=== PATIENT | male | born 1960 | race Caucasian/White ===

== ENCOUNTER 2018-07-20 09:07 | Observation (INO) ==
[2018-07-10 14:29] LABS: Hematocrit (blood only) 42.1 % (42-52); Hemoglobin 14.5 g/dL (14.0-18.0); Mean Corpuscular Hgb Conc 34.4 g/dL (32-36); Mean Corpuscular Volume 93.8 fL (80-100); Mean Platelet Volume 9.6 fL (7.4-10.4); Platelet Count 286 K/uL (130-400); RDW Coefficient of Variation 13.6 % (11.5-14.5); RDW Standard Deviation 46.5 fL (36.4-46.3); Red Blood Count 4.49 M/uL (4.7-6.1); White Blood Count 9.64 K/uL (4.8-10.8)
[2018-07-10 14:57] LABS: Calcium 9.3 mg/dl (8.5-10.1); Creatinine Clr Calc Pharmacy 106.3 ml/min; Potassium 3.6 mmol/L (3.5-5.1)
--- NOTE | 2018-07-15 07:06 | Anesthesiology Consultation ---
Date of Service July 15, 2018 Assessment & Plan (1) Encounter for pre-operative examination: Chart Review Chart Review: Acceptable Risk for Surgery and Patient NOT seen in Pre Admission Testing Consults Requested none History Surgery Operation Date: 07/20/18 07:00 Proposed Procedures p Laparoscopic Cholecystectomy - Gage Ruiz MD Height/Weight Height: 5 ft 8 in Weight: 105.233 kg Allergies Allergy/AdvReac Type Severity Reaction Status Date / Time ACROMYCIN Allergy Mild Rash Uncoded 07/09/18 09:24 Medications Home Medications Medication Instructions Recorded Confirmed Last Taken atorvastatin 20 mg PO HS 07/09/18 07/09/18 Unknown cholecalciferol (vitamin D3) 2,000 unit PO HS 07/09/18 07/09/18 Unknown [Vitamin D3] omeprazole 20 mg PO BID 07/09/18 07/09/18 Unknown penicillin V potassium 500 mg PO Q6H 07/09/18 07/09/18 Unknown ranitidine HCl [Zantac] 150 mg PO HS 07/09/18 07/09/18 Unknown venlafaxine [Effexor XR] 150 mg PO HS 07/09/18 07/09/18 Unknown Past Medical History Medical History Anxiety Barretts esophagus Cardiac murmur ONLY AN Degenerative disc disease Depression GERD (gastroesophageal reflux disease) Hepatitis C Hyperlipidemia Sleep apnea CPAP Past Family History Family History Mother Family hx of colon cancer Past Surgical History Surgical History History of adenoidectomy History of anesthesia reaction PROPROFOL WITH DENTAL PROCEDURE-LIGHTHEADED AND DIZZINESS 24 HOURS AFTER PROCEDURE. History of colonoscopy History of esophagogastroduodenoscopy (EGD) History of laminectomy LUMBAR X 3 History of tonsillectomy History of tooth extraction Hx of hand surgery RT HAND 5TH FINGER FX REPAIR Social History Smoking Status: Never smoker tobacco type: smokeless tobacco Do You Dip or Chew Tobacco: Yes Hx Alcohol Use: No Hx Substance Use: No substance use type: does not use Exercise / Class Metabolic Activity II 4-5 Yardwork/Stairs/Walk up hill Testing Electrocardiogram Date: 07/10/18 Findings: + NSR @ (77 bpm) and + NSST changes low voltage QRS Laboratory Results 07/10/18 13:32 07/10/18 13:32
[~2018-07-20 09:07] MED LIST: ACETAMINOPHEN 1000 MG/100 ML IV IV ONE; CEFAZOLIN 2000MG 2,000 MG/15 ML SYR IV SCH; LR 15ML/HR IV SCH
[2018-07-20] MEDS ORDERED: fentaNYL citrate 100 MCG/2 ML VIAL ONE (10:06)
[2018-07-20] MEDS ORDERED: MIDAZOLAM HCL 1 MG/ML 2ML VIAL ONE (10:06)
--- NOTE | 2018-07-20 10:45 | History & Physical Bridge Note ---
Date of Service July 20, 2018 History & Physical Bridge Note I have examined the patient, reviewed the History & Physical and in the interval since the performance of the History & Physical I have noted the following changes of clinical significance: no changes noted
[2018-07-20] MEDS ORDERED: CONRAY 60% 50 ML VIAL ONE (11:08)
[2018-07-20] MEDS ORDERED: CEFAZOLIN 250 MG/ML 1 GM VIAL ONE (11:08)
[2018-07-20] MEDS ORDERED: HEPARIN (PORCINE) 1000 UNIT/ML 10 ML (CATH LAB USE ONLY) ONE (11:08)
[2018-07-20] MEDS ORDERED: BUPIVACAINE 0.5 % 5 MG/1 ML MPF 30ML VIAL ONE (11:08)
[2018-07-20] MEDS ORDERED: PROPOFOL IV EMULSION 10 MG/ML 20 ML VIAL IV ONE ×2 (13:19→14:35)
[2018-07-20] MEDS ORDERED: ROCURONIUM BROMIDE 10 MG/ML 5 ML VIAL ONE ×2 (13:20→14:35)
[2018-07-20] MEDS ORDERED: ONDANSETRON INJ 2 MG/ML 2 ML VIAL ONE (13:20)
[2018-07-20] MEDS ORDERED: METOCLOPRAMIDE HCL INJ 5 MG/ML 2 ML VIAL ONE (13:20)
[2018-07-20] MEDS ORDERED: raNITIdine HCl 25 MG/ML VIAL ONE (13:20)
[2018-07-20] MEDS ORDERED: LIDOCAINE HCL 2% 2 ML VIAL/AMP(20MG/ML) INFIL ONE (13:23)
[2018-07-20] MEDS ORDERED: GLYCOPYRROLATE 0.2 MG/ML VIAL ONE (13:36)
[2018-07-20] MEDS ORDERED: NEOSTIGMINE METHYLSULFATE 5 MG/5 ML SYR ONE (13:36)
[2018-07-20] MEDS ORDERED: ACETAMINOPHEN 1000 MG/100 ML IV IV ONE (13:41)
[2018-07-20] MEDS ORDERED: MoRPHine SULFATE 2 MG/ML CARP ONE ×2 (13:54→14:31)
[2018-07-20] MEDS ORDERED: ONDANSETRON INJ 2 MG/ML 2 ML VIAL IV PRN ×2 (15:09→17:12)
[2018-07-20] MEDS ORDERED: ATROPINE SULFATE 0.1 MG/ML 10ML SYR IV PRN (15:09)
[2018-07-20] MEDS ORDERED: fentaNYL citrate 100 MCG/2 ML VIAL IV PRN (15:09)
[2018-07-20] MEDS ORDERED: DEXAMETHASONE SOD INJ 4 MG/ML VIAL IV PRN (15:09)
[2018-07-20] MEDS ORDERED: ePHEDrine sulfate 50 MG/ML AMP IV PRN (15:09)
[2018-07-20] MEDS ORDERED: HYDROmorphone INJ 2 MG/ML SYR/VIAL IV PRN (15:09)
--- NOTE | 2018-07-20 15:09 | Fluoroscopy Report ---
[place] cholangiogram OR CLINICAL HISTORY: Cholecystectomy COMPARISON STUDY: None FLUOROSCOPY TIME: 43 seconds. NUMBER OF FLUOROSCOPIC IMAGES: 3 FINDINGS: The cystic duct was cannulated and contrast was instilled into the common bile duct. There is no ductal dilatation. There was free flow into the duodenum. There is a nonspecific linear defect within the medial wall of the distal common bile duct, just proximal to the ampulla. IMPRESSION: 1. Subtle nonspecific linear defect within the medial wall the distal common bile duct just proximal to the ampulla. This is of uncertain etiology 2. No evidence of ductal dilatation. Free flow into the duodenum. Electronically signed by: Alberto Cannon M.D. 07/20/2018 3:07 PM
--- NOTE | 2018-07-20 15:33 | Post Operative Brief Note ---
Immediate Post Op Note v1 Date of Surgery July 20, 2018 Pre & Post Diagnosis Operation Date: 07/20/18 11:10 Pre-Op Diagnosis: Gallstones Post-Op Diagnosis: Gallstones Procedure Operation Date: 07/20/18 11:10 Actual Procedures p Laparoscopic Cholecystectomy(Not Applicable) - Gage Ruiz MD Surgeon Gage Ruiz MD [place] [facility] Sofia Griggs PA-C Estimated Blood Loss 25 Findings Consistent with Post-Op Diagnosis Specimens Gallbladder and contents Drains Davey-Mayes Drain Complications none
[2018-07-20] MEDS ORDERED: PROMETHAZINE HCL 6.25 MG in SODIUM CHLORIDE 0.9% 50 ML IV STA (16:20)
--- NOTE | 2018-07-20 17:05 | Anesthesiology Progress Note ---
Date of Service July 20, 2018 Anesthesia Post Procedure Vital Signs Vital Signs: Temp Pulse Pulse Resp BP Pulse Ox 07/20/18 16:45 78 14 129/65 94 07/20/18 16:35 36.8 C 70 14 133/62 93 07/20/18 16:25 77 14 141/72 H 94 07/20/18 16:15 70 14 125/69 93 07/20/18 16:05 72 14 133/73 93 07/20/18 15:55 71 18 156/76 H 93 07/20/18 15:45 36.5 C 71 14 163/89 H 94 07/20/18 09:36 36.7 C 73 18 148/100 H 95 Notes Mental Status: alert / awake / arousable Patient Amnestic to Procedure: Yes Nausea / Vomiting: adequately controlled Pain: adequately controlled Airway Patency, RR, SpO2: stable & adequate BP & HR: stable & adequate Hydration State: stable & adequate Anesthetic Complications: no major complications apparent Notes: per outgoing anesthesiologist, patient vomited on induction, quickly suctioned and intubated with no evidence of timo aspiration. ETT suctioned for scant clear fluid after induction, no bilious material. he was breathing and saturating well in pacu with no abnormal breath sounds and no dyspnea. Despite this, he will be observed overnight as the risk of delayed respiratory compromi se from aspiration pneumonitis exists. The surgeon was well briefed on the patient's condition and is more than welcome to call us if we may be of any assistance overnight.
[2018-07-20] MEDS ORDERED: OXYCODONE/ACETAMINOPHEN 5mg/325mg TAB PO PRN (17:12)
[2018-07-20] MEDS ORDERED: MoRPHine SULFATE 4 MG/ML 1 ML CARP\\VIAL IV PRN (17:12)
[2018-07-20] MEDS: PANTOprazole 40 MG TAB PO SCH (20:30)
[2018-07-20] MEDS: VENLAFAXINE HCL XR 150 MG CAPXR PO SCH (20:30)
[2018-07-20] MEDS: ATORVASTATIN 20 MG TAB PO SCH (20:30)
--- NOTE | 2018-07-21 01:47 | Operative Report ---
DATE OF OPERATION: 07/20/2018 PREOPERATIVE DIAGNOSES: Cholelithiasis, chronic cholecystitis. POSTOPERATIVE DIAGNOSES: Cholelithiasis, chronic cholecystitis. PROCEDURE: Laparoscopic cholecystectomy with intraoperative cholangiogram. SURGEON: Gage Ruiz MD INDUSTRIAL SERVICE TECHNICIAN: Sofia Griggs PA-C FINDINGS: The gallbladder was encased with omental adhesions that were thick. The gallbladder was dilated, but the wall was very thin and friable. There was no evidence of any area of gangrene. The cystic duct was mildly dilated. The liver was enlarged and had a appearance. The visible bowel appeared normal. Cholangiogram was performed. There was free flow into the duodenum through the cystic duct and we were clearly well above the junction of the cystic duct and the common bile duct. There was free flow into the duodenum and into the radicles. There were no filling defects that I could identify. TECHNIQUE: The patient was given a general anesthetic and the area was prepped and draped in the usual sterile fashion. A transverse incision was made below the umbilicus, carried down through the subcutaneous tissue to the fascia which was grasped with 2 Woo clamps and incised between. The peritoneum was identified, incised and the introducer was placed bluntly. The abdomen was then insufflated to a pressure of 15 mmHg with carbon dioxide. The upper midline, midclavicular and anterior axillary introducers were placed under direct vision through small skin incisions. The gallbladder was encased in adhesions. I divided some omental adhesions to the inferior edge of the right lobe of the liver and then worked medially and in peeling those down, I was able to identify the wall of the gallbladder. I then grasped the omentum and placed inferior traction with superior traction on the gallbladder and in placing just minimal traction with a regular grasper created a hole in the gallbladder. The bile was removed using suction. I then performed dissection off the wall of the gallbladder, working from the fundus down towards the body. There were several areas that I would grasp and would create small holes in the gallbladder. I had to dissect additional omental adhesions off the liver lateral and medial to the gallbladder. Some of the adhesions were flimsy and others were thick. It required cautery dissection. This was carried down until the infundibulum was identified. I then worked in the triangle of Calot and the gallbladder away from the liver on that side and then the gallbladder away from the liver on the lateral side and in doing so, created an additional hole in the infundibulum near the neck. It was from there that extruded some black friable stones. These were all retrieved using the stone retriever. I then milked the remainder of the neck of the gallbladder what proved to be the upper portion of the cystic duct until additional stones were extruded and those were also then removed from the abdomen. That allowed me then to grab the neck of the gallbladder and dissect it away from the liver first on the lateral side, then on the medial side. That then allowed me to identify a branch of the cystic artery up near the body of the gallbladder and this was doubly clamped, divided and ligated. The gallbladder was further dissected away from the liver at the body and neck area working from first lateral to medial then medial to lateral. That allowed me to completely separate that portion of the gallbladder away from the liver, so I could see the posterior aspect of what proved to be the cystic duct. Additional flimsy adhesions were dissected inferiorly and I was able to see what appeared to be the cystic duct and the junction with the friable gallbladder through the opening. In the gallbladder at the neck, I was able to introduce a cholangiocatheter and was able to inflate the balloon. The irrigation was performed with no leaking and cholangiogram was then performed with findings as stated above. I then elevated that which was the most inferior opening and was able to place 3 clips across the neck of the gallbladder and the proximal cystic duct and then I further transected that. I then worked on the posterior side, identifying the cystic artery and clipped it twice proximally and once near the gallbladder and divided it. The gallbladder was then peeled off the liver bed using cautery, placed into an Endobag and brought it through the upper midline incision. That introducer was replaced and the subdiaphragmatic and subhepatic spaces were irrigated and the irrigation was removed and that was repeated until the return was clear. There were no additional stones identified. A 10 mm Davey-Mayes was then brought out through the anterior axillary introducer site placed in the subhepatic position and secured at the skin with a 3-0 nylon. It was in good position. The gas was allowed to escape and the introducers were removed. The fascia of the umbilical and upper midline introducer sites was closed with interrupted 0 Vicryl and the skin of all the incisions was closed with 4-0 Monocryl in either an interrupted or running subcuticular fashion. The skin was anesthetized with 0.5% Marcaine. The skin was cleansed, dried, benzoin placed and Steri-Strips applied. Estimated blood loss was 25 mL. Sponge, needle and instrument counts were correct prior to closure. The patient tolerated surgical procedure without complication and was transferred to recovery. I attest to the content of the Intraoperative Record and any orders documented therein. Any exception s are noted below.
--- NOTE | 2018-07-21 08:19 | Anesthesiology Progress Note ---
Date of Service July 21, 2018 Anesthesia Post Procedure Vital Signs Vital Signs: Temp Pulse Pulse Pulse Resp BP Pulse Ox 07/21/18 07:19 36.8 C 73 18 108/65 93 07/21/18 03:30 36.6 C 75 14 126/68 93 07/20/18 22:57 36.9 C 68 20 131/65 92 07/20/18 20:00 36.5 C 70 20 122/72 94 07/20/18 19:00 36.5 C 82 20 124/73 95 07/20/18 17:57 36.8 C 72 20 126/73 96 07/20/18 17:30 36.7 C 71 20 126/78 96 07/20/18 17:00 36.7 C 71 16 126/71 94 07/20/18 16:45 78 14 129/65 94 07/20/18 16:35 36.8 C 70 14 133/62 93 07/20/18 16:25 77 14 141/72 H 94 07/20/18 16:15 70 14 125/69 93 07/20/18 16:05 72 14 133/73 93 07/20/18 15:55 71 18 156/76 H 93 07/20/18 15:45 36.5 C 71 14 163/89 H 94 07/20/18 09:36 36.7 C 73 18 148/100 H 95 Pain Intensity Abdomen: Pain Intensity: 3 Notes Mental Status: alert / awake / arousable Patient Amnestic to Procedure: Yes Nausea / Vomiting: adequately controlled Pain: adequately controlled Airway Patency, RR, SpO2: stable & adequate BP & HR: stable & adequate Hydration State: stable & adequate Anesthetic Complications: no major complications apparent
[2018-07-21] MEDS: PANTOprazole 40 MG TAB PO SCH ×2 (09:31→21:36)
[2018-07-21] MEDS ORDERED: ACETAMINOPHEN 325 MG TAB PO PRN (15:01)
[2018-07-21] MEDS ORDERED: IBUPROFEN 600 MG TAB PO PRN (15:03)
--- NOTE | 2018-07-21 15:10 | Surgery Progress Note ---
Date of Service July 21, 2018 Assessment & Plan (1) S/P cholecystectomy: POD # 1 s/p laparoscopic cholecystectomy - vitals stable, afebrile, required nasal cannula last night and this morning running about 90-94% on room air today - preoperative nausea resolved - post op pain moderate with movement - adequate urine output - jed drain with serosanguineous output Plan: Add po tylenol and ibuprofen as needed for mild pain, continue Percocet and IV Morphine for moderate to severe pain as needed advance to regular diet continue IV Zofran prn nausea encouraged incentive spirometry 10x /hour ambulate hallway CPAP for this evening oxygen via nc as needed to keep O2 sats > 94% Continue jed drain to bulb suction Dr. Ruiz to evaluate patient later today Subjective feeling better than yesterday nausea resolved moderate pain at incisions when up and moving, had pain medication this morning using incentive spirometry about 1 x per hour ambulated hallway tolerated clear liquids + passing gas, no bowel movement Physical Exam Constitutional: WD/WN, vitals as above + obese; no acute distress and not ill appearing drowsy, tired Respiratory: no respiratory distress, no labored breathing and does not use accessory muscles Auscultation: + diminished lung sounds; no crackles, no rales, no rhonchi and no wheezes Gastrointestinal (Abdomen): Inspection/Auscultation: abdomen normal to inspection; abdomen not distended and + abnormal bowel sounds Percussion/Palpation: + abdomen tender (at incision sites, appropriate post op) and abdomen soft; no guarding and abdomen not rigid Skin: no rashes, warm and dry + incision (covered with dressings, dressing saturated on upper subxiphoid incision) Psychiatric: A+Ox3, euthymic affect Results & Data Vital Signs (Past 12 Hours) Vital Signs Temp Pulse Resp BP Pulse Ox 07/21/18 12:00 36.9 C 80 17 122/75 92 07/21/18 07:19 36.8 C 73 18 108/65 93 07/21/18 03:30 36.6 C 75 14 126/68 93
[2018-07-21] MEDS: VENLAFAXINE HCL XR 150 MG CAPXR PO SCH (21:36)
[2018-07-21] MEDS: ATORVASTATIN 20 MG TAB PO SCH (21:36)
--- NOTE | 2018-07-22 08:26 | Surgery Progress Note ---
Date of Service July 22, 2018 Assessment & Plan (1) S/P cholecystectomy: POD # 2 s/p laparoscopic cholecystectomy - vitals stable, afebrile - preoperative nausea resolved - post op pain minimal with movement - adequate urine output - jed drain with serosanguineous output Plan: discharge home today discontinue jed drain discharge instructions reviewed f/u in office in [address] Ruiz has seen and examined pt, agrees with above Subjective Feeling good minimal pain no n/v tolerated regular diet urinating without difficulty Physical Exam Constitutional: WD/WN, vitals as above no acute distress and not ill appearing Respiratory: normal respiratory effort; no respiratory distress Gastrointestinal (Abdomen): Inspection/Auscultation: abdomen not distended Percussion/Palpation: + abdomen tender (at incision sites and drain site, sindy ropriate post op) and abdomen soft; no guarding and abdomen not rigid Skin: no rashes, warm and dry + incision (dressings intact, saturated upper midline incision dressing but dry) Psychiatric: A+Ox3, euthymic affect Results & Data Vital Signs (Past 12 Hours) Vital Signs Temp Pulse Pulse Resp BP Pulse Ox 07/22/18 07:04 37.1 C 73 18 125/77 94 07/21/18 23:16 37.6 C H 72 16 125/76 91 07/21/18 23:06 76 92
[2018-07-22] MEDS: PANTOprazole 40 MG TAB PO SCH (08:37)
--- NOTE | 2018-07-23 11:31 | Discharge Summary ---
Date of Service July 23, 2018 Admission HPI Per Admitting Provider Patient presented to [facility] for outpatient elective laparoscopic cholecystectomy by Dr. Ruiz for chronic nausea. Principal Diagnosis Chronic nausea Acute/chronic cholecystitis Discharge Exam Constitutional WD/WN, vitals as above no acute distress and not ill appearing Respiratory normal respiratory effort; no respiratory distress Gastrointestinal (Abdomen) Inspection/Auscultation: abdomen not distended Percussion/Palpation: + abdomen tender (at incision sites and drain site, appropriate post op) and abdomen soft; no guarding and abdomen not rigid Skin no rashes, warm and dry + incision (dressings intact, saturated upper midline incision dressing but dry) Psychiatric A+Ox3, euthymic affect Discharge Data Allergies Allergy/AdvReac Type Severity Reaction Status Date / Time tetracycline Allergy Rash Verified 07/20/18 16:26 [From Achromycin] Procedures Performed Operation Date: 07/20/18 11:10 Actual Procedures p Laparoscopic Cholecystectomy(Not Applicable) - Gage Ruiz MD Ordered Studies 04 14:30 [place] cholangiogram OR Routine Hospital Course (1) S/P cholecystectomy: Patient was taken to operating room for laparoscopic cholecystectomy possible open by Dr. Ruiz. Patient was found to have severe inflammation of the gallbladder with very thin walled gallbladder and distention. Gallbladder was grasped to start the procedure and the gallbladder ripped given the thin wall. Intraoperative cholangiogram showed no CBD obstruction and CBD still intact. Patient tolerated procedure well however did have emesis during intubation and during extubation. Patient was transferred to recovery and the medical/surgical floor for postoperative care. He was started on IV fluids, IV pain medication with PO Percocet, IV Zofran prn nausea, activity as tolerated, incentive spirometry, SCDs, and clear liquid diet. POD # 1 patient doing well, preop nausea completely resolved, minimal pain but more pain on ambulation. per nursing his O2 sats were in the 80's last night so was started on nasal cannula 2 liters. 90-94% on room air this morning. Unable to take deep breath due to pain and clearly splinting on examination. Encouraged incentive spirometry. Diet advanced to regular diet. CPAP added for the night as he did not have home CPAP. POD # 2 , vitals stable, afebrile, pain controlled, tolerated regular diet, able to sleep good last night with CPAP, oxygen sats normal, no nausea, douglas drain output minimal and serosanguineous. Douglas drain was attempted to remove however was suctioned tight. Gave one dose of Percocet and returned about 30 minutes later for drain removal. DOUGLAS drain stripped but still difficult to remove but was finally able to remove once patient finally relaxed. Patient discharged home on POD # 2 in stable condition. Total Time Total Time Spent Total Time Spent (In Minutes): 30 Total Time Includes: Examination of the Patient, Discharge Planning and Medication Reconciliation Discharge Plan Discharge Items Patient Disposition: Home - Self-Care Reason For Visit: Gallstones Discharge Diagnosis: Acute cholecystitis Discharge Goals: Decrease discomfort Activity: Per 'Additional Instructions' section Non-emergency contact: Surgeon Call non-emergency contact if: your symptoms worsen, your pain is not controlled, your pain is worsening, your pain is concerning for you, you have a fever, your temperature is above 101, your wound has increased redness and your wound has increased drainage Follow-up/Referrals: Nora Arias PA-C [Primary Care Provider] - Diet: Regular Addtl Provider Instructions: Post-Surgical ~Discharge Instructions Activity Recommendations: - lifting limitation: (10 pounds for 2 weeks), - exercise/sex/sports limit: (nonstrenuous for 2 weeks), - driving or machine use limit: (none for 1 week), - Shower/bathe limit: (may shower beginning today) Diet: - Resume previous diet SPECIAL CARE INSTRUCTIONS: - May shower. Let water run over area and pat dry. - Leave steri strips on for one week. - Call the surgeon's office with any questions or concerns - - (ex. temperature higher than 101 degrees F, excessive bleeding or pain). MEDICATIONS: - Resume previous medications unless instructed otherwise by your surgeon. - Ibuprofen 600 mg every 6 hours with food - Percocet 1 every 4 hours, as needed for pain FOLLOW UP VISIT: - If not already scheduled, please call the office to schedule a two week follow-up appointment. Office number Prescriptions: New oxycodone-acetaminophen 5-325 mg tablet 1 tab PO Q4H PRN (Reason: pain) Qty: 10 RF: 0 Continued atorvastatin 20 mg Tablet 20 mg PO HS RF: 0 venlafaxine [Effexor XR] 150 mg Capsule,Extended Release 24hr 150 mg PO HS RF: 0 ranitidine HCl [Zantac] 150 mg Tablet 150 mg PO HS RF: 0 omeprazole 20 mg Tablet,Delayed Release (Dr/Ec) 20 mg PO BID RF: 0 cholecalciferol (vitamin D3) [Vitamin D3] 2,000 unit Tablet 2,000 unit PO HS RF: 0 Stand-Alone Forms: [facility], Opioid Pain Management Discharge Orders: Discharge Order (Routine); Ordered 07/22/18 Ordered By: Sofia Griggs Admission Data Admit Date/Time: 07/20/18 15:52 Attending Provider: Gage Ruiz Admit Provider: Gage Ruiz Primary Care Provider: Nora Arias Service: Surgical Services Other Interventions: Discharge Summary Assessment (RN) Last Done: 07/22/18 10:20 Pending Studies at Discharge: Yes (Gallbladder pathology, will be reviewed at follow-up visit) DC Date/Time DO NOT enter until pt leaves facility: 07/22/18 10:42
--- OUTSIDE RECORDS SUMMARY | 2018-07-27 14:41 | External Medical Summary | Continuity of Care Document ---
:1960 Author Name Selina Woodson Address Unavailable Unavailable , Care Team Providers Name Role Phone Stefany Mathias [email or web address] PCP, [email or web address] Unavailable Unavailable Problems Active medical history not documented Allergies and Adverse Reactions Allergy history not documented Medications Medications not documented Procedures Procedures not documented Immunizations Immunizations not documented Plan of Treatment Planned Observations Planned Goals not documented Results No Known Results Results not documented
== END 2018-07-22 10:42 | disposition home or self-care (01) ==
LOC: 3E 09:07 → ASU 09:07

== ENCOUNTER 2020-02-08 18:35 | Observation (INO) ==
[2020-02-08] MEDS ORDERED: GLUCAGON 1 MG in SYRINGE 0 ML IV STA (18:42)
[2020-02-08] MEDS ORDERED: ONDANSETRON INJ 2 MG/ML 2 ML VIAL IV STA (18:42)
[2020-02-08] MEDS ORDERED: SODIUM CHLORIDE 0.9% 1000ML 1,000 ML IV SCH (18:45)
[2020-02-08 19:09] LABS: Partial Thromboplastin Ratio 0.9; Partial Thromboplastin Time 25.4 Seconds (21.0-31.0)
[2020-02-08 19:11] LABS: Hematocrit (blood only) 44.1 % (42-52); Hemoglobin 15.1 g/dL (14.0-18.0); Lymphocytes % (auto) 18.1 %; Mean Corpuscular Hemoglobin 31.7 pg (25-34); Mean Corpuscular Hgb Conc 34.2 g/dL (32-36); Mean Corpuscular Volume 92.6 fL (80-100); Monocytes % (auto) 5.5 %; Neutrophils % (auto) 73.8 %; Platelet Count 324 K/uL (130-400); RDW Coefficient of Variation 13.4 % (11.5-14.5); RDW Standard Deviation 45.3 fL (36.4-46.3); Red Blood Count 4.76 M/uL (4.7-6.1); White Blood Count 12.63 K/uL (4.8-10.8)
[2020-02-08 19:12] LABS: Basophils # (auto) 0.06 K/uL (0-0.2); Basophils % (auto) 0.5 %; Eosinophils # (auto) 0.24 K/uL (0-0.5); Eosinophils % (auto) 1.9 %; Immature Granulocytes # (auto) 0.02 K/uL (0.00-0.02); Immature Granulocytes % (auto) 0.2 %; Lymphocytes # (auto) 2.29 K/uL (1.2-3.4); Monocytes # (auto) 0.69 K/uL (0.11-0.59); Neutrophils # (auto) 9.33 K/uL (1.4-6.5)
--- NOTE | 2020-02-08 19:16 | XRay Report ---
XR chest 1V portable CLINICAL HISTORY: Atypical chest pain COMPARISON STUDY: No previous studies for comparison. FINDINGS: The cardiac and mediastinal contours are normal. There is no evidence of focal pulmonary co nsolidation. There is no evidence of failure. No pleural effusions are visualized.[ IMPRESSION: No active disease in the chest. ACT 112: Negative or not required by law. Electronically signed by: Alberto Cannon M.D. 02/08/2020 7:14 PM
[2020-02-08 19:23] LABS: Alanine Aminotransferase 34 U/L (12-78); Albumin Level 4.2 gm/dl (3.4-5.0); Aspartate Aminotransferase 20 U/L (15-37); BUN Creatinine Ratio 13.8 (10-20); Blood Urea Nitrogen 14 mg/dl (7-18); Calcium 9.7 mg/dl (8.5-10.1); Carbon Dioxide 25 mmol/L (21-32); Chloride 110 mmol/L (98-107); Est GFR (African American) 93.3; Est GFR (Non-African American) 80.5; Glucose 111 mg/dl (70-99); Lipase 128 U/L (73-393); Potassium 3.9 mmol/L (3.5-5.1); Sodium 142 mmol/L (136-145)
[2020-02-08 19:28] LABS: Alkaline Phosphatase 112 U/L (45-117); Bilirubin,Total 0.3 mg/dl (0.2-1); Globulin 4.1 gm/dl (2.5-4.0); Total Protein 8.4 gm/dl (6.4-8.2); Troponin I < 0.015 ng/ml (0-0.045)
--- NOTE | 2020-02-08 19:30 | Emergency Department Note ---
Impression & Plan Abdominal pain, acute, epigastric, Nausea & vomiting ED Provider Note NAME: MARTIN ESTRADA AGE: 59 SEX: M : 1960 ARRIVES VIA: Walk-In INFORMANT: Patient, ED PROVIDER(S): Raza Trujillo DO CHIEF COMPLAINT: Nausea vomiting HPI: The patient is a 59-year-old male who presented to the emergency department for an evaluation of epigastric pain. The patient started having epigastric pain and nausea vomiting approximately 3 hours ago. The patient has sharp epigastric pain that he describes as a fist in his epigastrium. The patient has a history of achalasia which was recently diagnosed by upper endoscopy. The patient has a history of cholecystectomy. After cholecystectomy they thought his symptoms might improve but he continued to have significant epigastric problems with nausea vomiting. The patient describes severe symptoms which are relieved shortly after vomiting. He denies having any hematemesis. He has had no black or bloody bowel movements. He denies having any headache or weakness. He has been able to ambulate without difficulty. His last meal was a noodle soup. He does feel that there may be a foreign body. ROS: See above HPI for pertinent positives & negatives. A total of 10 systems reviewed and were otherwise negative. PAST MEDICAL HISTORY: See Below PAST SURGICAL HISTORY: See Below FAMILY HISTORY: See Below SOCIAL HISTORY: See Below HOME MEDICATIONS: See Below ALLERGIES: See Below VITALS: See Below PHYSICAL EXAMINATION: GENERAL: The patient is awake and alert. He is very anxious appearing. EYES: The conjunctivae are clear. The pupils are round and reactive. EARS, NOSE, MOUTH AND THROAT: The nose is without any evidence of any deformity. NECK: The neck is nontender and supple. RESPIRATORY: Normal respiratory effort is noted there is no evidence of wheezing rhonchi or rales CARDIOVASCULAR: Regular rate and rhythm noted there no murmurs rubs or gallops normal S1 normal S2. GASTROINTESTINAL: Abdomen is soft and nondistended. There is epigastric tenderness to palpation but no guarding rigidity. MUSCULOSKELETAL/EXTREMITIES: There is no evidence of gross deformity full range of motion is noted in the hips and shoulders. SKIN: There is no obvious evidence of any rash. There are no petechiae, pallor or cyanosis noted. NEUROLOGIC: Patient is awake alert and oriented x3 strength is symmetric patellar reflexes are 2+ bilaterally MEDICAL DECISION MAKING: The patient is a 59-year-old male who presented to the emergency department for an evaluation of epigastric pain. The patient was eating earlier for dinner but then started having severe epigastric pain followed by multiple episodes of nausea vomiting. Patient was treated with IV fluids and IV antiemetics. On subsequent reevaluation he was somewhat improved. He continued to have very significant epigastric discomfort. He has had similar episodes in the past and had an upper endoscopy which revealed signs of achalasia. Patient was taking proton pump inhibitors but his symptoms worsened significantly prior to arrival. He is able to clear secretions and does not appear to be presenting like an esophageal foreign body although given the patient's location of his pain he may be exhibiting signs of esophageal spasm. The patient was feeling somewhat improved but given his presentation I did discuss his case with the on-call [facility] hospitalist. They have agreed to evaluate the patient in the emergency department for further management and disposition. Triage Nursing notes reviewed. Prior medical records reviewed Vital Signs: reviewed and remarkable for elevated blood pressure. Differential diagnosis: Cardiac ischemia, aortic dissection, pulmonary embolism, pneumothorax, pneumonia, pericarditis, myocarditis, esophageal rupture, GERD, cholecystitis, pancreatitis, musculoskeletal, as well as other pathologies. ER treatment provided: See below Diagnostics interpreted by me: ECG: EKG was obtained in the emergency department. My interpretation is normal sinus rhythm at 66 bpm. There is inferior and low lateral ST segment abnormalities noted. There was no ectopy. This was compared to a tracing from July 10, 2018. No significant changes were noted. Cardiac Monitoring: An order was placed for continuous cardiac monitoring. The monitor shows a rate of 58 bpm with sinus bradycardia rhythm. Laboratory studies: As stated above and show below. Imaging studies: See below Consultation(s): I discussed this case with Dr. Parra. Past Med/Surg History Medical History (Updated 02/09/20 @ 00:05 by Raza Trujillo DO) Anxiety Barretts esophagus Cardiac murmur ONLY AN INFANT Degenerative disc disease Depression GERD (gastroesophageal reflux disease) Hepatitis C Hyperlipidemia Sleep apnea CPAP Surgical History History of adenoidectomy History of anesthesia reaction PROPROFOL WITH DENTAL PROCEDURE-LIGHTHEADED AND DIZZINESS 24 HOURS AFTER PROCEDURE. 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 Beliefs That Will Affect Care: None Current Living Situation: Spouse Feels Safe at Home: Yes Assistive Devices: Glasses Allergies Allergies Allergy/AdvReac Type Severity Reaction Status Date / Time tetracycline Allergy Unknown Rash Verified 02/08/20 19:33 [From Achromycin] Home Meds Home Medications Medication Instructions Recorded Confirmed atorvastatin 20 mg PO HS 07/09/18 02/08/20 cholecalciferol (vitamin D3) 2,000 unit PO HS 07/09/18 02/08/20 [Vitamin D3] venlafaxine [Effexor XR] 150 mg PO HS 07/09/18 02/08/20 dicyclomine 10 mg PO AC 02/08/20 02/08/20 esomeprazole magnesium 40 mg PO BID 02/08/20 02/08/20 famotidine 20 mg PO BID 02/08/20 02/08/20 nitroglycerin 0.4 mg SUBLINGUAL DIRECTED PRN 02/08/20 02/08/20 Results & Data (ED) Vital Signs Vital Signs - 24 hr 02/08/20 18:40 02/08/20 18:43 02/08/20 19:00 Temperature 36.6 C Temperature Source Oral Pulse Rate 67 61 72 Pulse Rate from SpO2 Sensor 60 Pulse Rhythm Regular Pulse Strength Normal Respiratory Rate 20 21 16 Respiratory Effort / Characteristics Non-Labored Spontaneous Respiratory Depth Normal Respiratory Pattern Regular Blood Pressure 184/89 H 184/89 H 172/93 H Blood Pressure Mean 120 123 137 Blood Pressure Position Lying Pulse Oximetry 100 100 Oxygen Delivery Method Room Air Sepsis Recent Fever Within 48 Hours No Sepsis New/Unexplained Change in Mental Status No Sepsis Action Taken by Nursing No Action Required 02/08/20 20:00 02/08/20 21:11 02/08/20 21:30 Temperature Temperature Source Pulse Rate 65 58 L 54 L Pulse Rate from SpO2 Sensor Pulse Rhythm Pulse Strength Respiratory Rate 14 13 Respiratory Effort / Characteristics Respiratory Depth Respiratory Pattern Blood Pressure 165/101 H 160/81 H 183/87 H Blood Pressure Mean 123 104 119 Blood Pressure Position Pulse Oximetry Oxygen Delivery Method Sepsis Recent Fever Within 48 Hours Sepsis New/Unexplained Change in Mental Status Sepsis Action Taken by Nursing 02/08/20 23:37 02/08/20 23:39 Temperature Temperature Source Pulse Rate 67 57 L Pulse Rate from SpO2 Sensor 60 Pulse Rhythm Pulse Strength Respiratory Rate 16 Respiratory Effort / Characteristics Respiratory Depth Respiratory Pattern Blood Pressure 156/87 H Blood Pressure Mean 110 Blood Pressure Position Pulse Oximetry 94 Oxygen Delivery Method Room Air Sepsis Recent Fever Within 48 Hours Sepsis New/Unexplained Change in Mental Status Sepsis Action Taken by [facility] Medications Current Medication List: was personally reviewed by me Laboratory Data Attestation: I reviewed the patient's lab results. Result diagrams: 02/08/20 18:40 02/08/20 18:40 Lab Results 02/08/20 02/08/20 02/08/20 Range/Units 18:40 18:40 18:40 WBC 12.63 H (4.8-10.8) K/uL RBC 4.76 (4.7-6.1) M/uL Hgb 15.1 (14.0-18.0) g/dL Hct 44.1 (42-52) % MCV 92.6 (80-100) fL MCH 31.7 (25-34) pg MCHC 34.2 (32-36) g/dL RDW Std Deviation 45.3 (36.4-46.3) fL RDW Coeff of Maria Teresa 13.4 (11.5-14.5) % Plt Count 324 (130-400) K/uL MPV 10.0 (7.4-10.4) fL Immature Gran % (Auto) 0.2 % Neut % (Auto) 73.8 % Lymph % (Auto) 18.1 % Spink % (Auto) 5.5 % Eos % (Auto) 1.9 % Baso % (Auto) 0.5 % Neut # (Auto) 9.33 H (1.4-6.5) K/uL Lymph # (Auto) 2.29 (1.2-3.4) K/uL Spink # (Auto) 0.69 H (0.11-0.59) K/uL Eos # (Auto) 0.24 (0-0.5) K/uL Baso # (Auto) 0.06 (0-0.2) K/uL Immature Gran # (Auto) 0.02 (0.00-0.02) K/uL PT 11.0 (9.0-12.0) Seconds INR 1.0 (0.9-1.1) APTT 25.4 (21.0-31.0) Seconds PTT Ratio 0.9 Sodium 142 (136-145) mmol/L Potassium 3.9 (3.5-5.1) mmol/L Chloride 110 H (98-107) mmol/L Carbon Dioxide 25 (21-32) mmol/L Anion Gap 7.0 (3-11) BUN 14 (7-18) mg/dl Creatinine 1.01 (0.6-1.4) mg/dl Est Cr Clr Drug Dosing Not Reportable Est GFR ( Amer) 93.3 Est GFR (Non-Af Amer) 80.5 BUN/Creatinine Ratio 13.8 (10-20) Glucose 111 H (70-99) mg/dl Calcium 9.7 (8.5-10.1) mg/dl Total Bilirubin 0.3 (0.2-1) mg/dl AST 20 (15-37) U/L ALT 34 (12-78) U/L Alkaline Phosphatase 112 (45-117) U/L Troponin I < 0.015 (0-0.045) ng/ml Total Protein 8.4 H (6.4-8.2) gm/dl Albumin 4.2 (3.4-5.0) gm/dl Globulin 4.1 H (2.5-4.0) gm/dl Albumin/Globulin Ratio 1.0 (0.9-2) Lipase 128 (73-393) U/L Administered Medications Discontinued Medications Sodium Chloride (Nss 1000ml) 1,000 mls @ 999 mls/hr IV .Q1H1M TAMI Stop: 02/08/20 19:45 Last Infusion: 02/08/20 20:17 Dose: 0 mls/hr Documented by: [id number] Admin: 02/08/20 19:06 Dose: 999 mls/hr Documented by: [id number] Glucagon 1 mg/ Syringe 1 mls @ 1 mls/min IV NOW STA Stop: 02/08/20 18:43 Last Admin: 02/08/20 19:06 Dose: 1 mls/min Documented by: [id number] Promethazine HCl (Phenergan) 12.5 mg in 50.5 mls @ 202 mls/hr IV NOW STA Stop: 02/08/20 23:55 Last Admin: 02/08/20 23:52 Dose: 202 mls/hr Documented by: [id number] Ioversol (Ioversol 100ml) 100 ml IV ONCE ONE Stop: 02/08/20 23:50 Last Admin: 02/08/20 23:49 Dose: 93 ml Documented by: [id number] Ondansetron HCl (Ondansetron Inj 2 Mg/Ml 2 Ml Vial) 4 mg IV NOW STA Stop: 02/08/20 18:43 Last Admin: 02/08/20 19:06 Dose: 4 mg Documented by: [id number] Imaging Data Radiologist's Impression: Patient: MARTIN ESTRADA Admit Date: 02/08/20 MR#: [id number] Address1: [address] Acct ID:[id number] Address2: Date: 1960 [facility] Zip: [place] [address] Age: 59 Location: ED Sex: M Room/Bed: Att Phy: Diagnosis: ILLNESS Bushra Phy: Nora Arias PA-C Service Date: 02/08/20 [facility] Phy: Nora Arias PA-C Interpreting Phy: Alberto Cannon MD Admit Phy: Ordering Phy: Raza Trujillo DO cc: ~ CT head/brain wo con CLINICAL HISTORY: vertigo COMPARISON STUDY: No previous studies for comparison. TECHNIQUE: Axial CT of the brain is performed from the vertex to the skull base. IV contrast was not administered for this examination. A dose lowering technique was utilized adhering to the principles of ALARA. CT DOSE: 614.27 mGy.cm FINDINGS: No intra or extra-axial mass lesions are visualized. There is no CT evidence of acute cortical infarction. There is no evidence of midline shift. There is no acute hemorrhage. No calvarial fractures are visualized. There is no evidence of pathologic ventricular dilatation. There is no evidence of acute sinusitis IMPRESSION: No acute intracranial findings ACT 112: Negative or not required by law. Electronically signed by: Alberto Cannon M.D. 02/08/2020 8:37 PM Dictated: 02/08/202034 Transcribed: 02/08/202034 Patient: MARTIN ESTRADA Admit Date: 02/08/20 MR#: [id number] Address1: [address] Acct ID:[id number] Address2: Date: 1960 [facility] Zip: [place] [address] Age: 59 Location: ED Sex: M Room/Bed: Att Phy: Diagnosis: ILLNESS Bushra Phy: Nora Arias PA-C Service Date: 02/08/20 Fam Phy: Interpreting Phy: Alberto Cannon MD Admit Phy: Ordering Phy: Raza Trujillo DO cc: ~ XR chest 1V portable CLINICAL HISTORY: Atypical chest pain COMPARISON STUDY: No previous studies for comparison. FINDINGS: The cardiac and mediastinal contours are normal. There is no evidence of focal pulmonary consolidation. There is no evidence of failure. No pleural effusions are visualized.[ IMPRESSION: No active disease in the chest. ACT 112: Negative or not required by law. Electronically signed by: Alberto Cannon M.D. 02/08/2020 7:14 PM Dictated: 02/08/201913 Transcribed: 02/08/201913 Patient: MARTIN ESTRADA (Male) : 58 Status: ER Date: 02/08/20 23:48 Room #: History: VOMITING WITH PAIN AT MID ABD Slices: [id number] Priors: Tech: Ivan Masterson @ [phone] Exams: CT ABDOMEN & PELVIS With Contrast Contrast: IV Amt: 93 ML OPTIRAY 320 Accession Numbers: [id number] Preliminary Findings Only See Final Report For Complete Findings CT ABDOMEN & PELVIS With Contrast: Comparison MRI of the abdomen, 06/24/2018. No acute intra-abdominal inflammatory process. No bowel dilatation. Unremarkable appendix. Colonic diverticulosis. No CT evidence for diverticulitis. Dilated and fluid-filled distal esophagus with circumferential thickening which may indicate nonspecific esophagitis, obstructing neoplasm, stricture or achalasia. Cholecystectomy. No abdominal aortic aneurysm. Mildly enlarged prostate gland. Bilateral fat-containing inguinal hernias. Radiologist: Carmelo Julian M.D. Study ready at 23:58 and initial results transmitted at 00:09 Blood Pressure Blood Pressure Findings: Elevated blood pressure Blood Pressure Disposition: further management by hospitalist Discharge Plan Visit Data Chief Complaint: Illness Stated Complaint: ILLNESS ED Provider: Raza Trujillo Discharge Problem: Abdominal pain, acute, epigastric, Nausea & vomiting Patient Disposition: Being Evaluated by Hospitalist Condition: Good Forms Stand Alone Forms: [facility] Prescriptions Prescriptions: No Action atorvastatin 20 mg Tablet 20 mg PO HS RF: 0 venlafaxine [Effexor XR] 150 mg Capsule,Extended Release 24hr 150 mg PO HS RF: 0 cholecalciferol (vitamin D3) [Vitamin D3] 2,000 unit Tablet 2,000 unit PO HS RF: 0 famotidine 20 mg tablet 20 mg PO BID RF: 0 esomeprazole magnesium 40 mg capsule,delayed release(DR/EC) 40 mg PO BID RF: 0 dicyclomine 10 mg capsule 10 mg PO AC RF: 0 nitroglycerin 0.4 mg tablet, sublingual 0.4 mg sublingual DIRECTED PRN (Reason: Chest Pain) RF: 0 Referrals Referrals: Nora Arias PALindaC [Primary Care Provider] - Discharge Problem: Nausea & vomiting Qualifiers: Vomiting type: unspecified Vomiting Intractability: non-intractable Qualified Code(s): R11.2 - Nausea with vomiting, unspecified
--- NOTE | 2020-02-08 20:38 | CT Scan Report ---
CT head/brain wo con CLINICAL HISTORY: vertigo COMPARISON STUDY: No previous studies for comparison. TECHNIQUE: Axial CT of the brain is performed from the vertex to the skull base. IV contrast was not administered for this examination. A dose lowering technique was utilized adhering to the principles of ALARA. CT DOSE: 614.27 mGy.cm FINDINGS: No intra or extra-axial mass lesions are visualized. There is no CT evidence of acute cortical infarc tion. There is no evidence of midline shift. There is no acute hemorrhage. No calvarial fractures ar e visualized. There is no evidence of pathologic ventricular dilatation. There is no evidence of acute sinusitis IMPRESSION: No acute intracranial findings ACT 112: Negative or not required by law. Electronically signed by: Alberto Cannon M.D. 02/08/2020 8:37 PM
[2020-02-08] MEDS ORDERED: PROMETHAZINE 12.5 MG/50.5 ML BAG IV STA (23:41)
[2020-02-08] MEDS ORDERED: IOVERSOL 100ml IV ONE (23:49)
--- NOTE | 2020-02-09 00:44 | History & Physical Report ---
Date of Service February 09, 2020 Assessment & Plan (1) Abdominal pain, acute, epigastric: Nirmal Brar is a 59-year-old male with a past medical history of achalasia, hyperlipidemia, and reflux who presents with 1 day of worsened epigastric pain and vomiting. Intractable nausea/vomiting Leukocytosis, suspect demargination - CT/A: No acute intra-abdominal inflammatory process. No bowel dilatation. Unremarkable appendix. Colonic diverticulosis. No CT evidence for diverticulitis. Dilated and fluid-filled distal esophagus with circumferential thickening which may indicate nonspecific esophagitis, obstructing neoplasm, stricture or achalasia. Cholecystectomy. No abdominal aortic aneurysm. Mildly enlarged prostate gland. Bilateral fat-containing inguinal hernias. Patient with achalasia with dilation 1 month ago N.p.o. Zofran, Phenergan, doxylamine as needed Defer NGT placement at this time, recent dilation Elevate head of bed, aspiration precautions GI consulted PPI, famotidine push BID Elevated total protein SPEP ordered Consider peripheral smear Report of weight loss, DDx includes malignancy Hyperlipidemia Held atorvastatin for intractable vomiting Anxiety/depression Venlafaxine held for intractable vomiting DVT prophylaxis: Heparin Diet: N.p.o. NSS plus KCl 120 cc/h Disposition: Medical surgical CODE STATUS: Full code (2) Nausea & vomiting: (3) Encounter for pre-operative examination: (4) S/P cholecystectomy: History of Present Illness Chief Complaint: Intractable nausea/vomiting Primary Care Provider: Nora Arias PA-C Nirmal Brar is a 59-year-old male with a past medical history of achalasia, hyperlipidemia, and reflux who presents with 1 day of worsened epigastric pain and vomiting. Salazar reports that his stomach has been bothering him since October. He saw Dr. Hobbs 1 month ago and was found to have achalasia which was dilated on EGD. He was initially well, but developed epigastric discomfort in the last few weeks which has been coming and going. In the last 6 hours he notes his stomach has become "sore as hell "and he has been vomiting for several hours with persistent nausea. He denies blood, feels like his emesis is becoming bilious. He had similar symptoms over a year ago before having his gallbladder out, but notes that this feels different. He denies fevers, chills, diarrhea. He has had some sweats with vomiting. He has felt constipated. He has not had any shortness of breath. He endorses epigastrium and lower central chest pain, no upper or left-sided chest pain. He has had weight loss. He has not had a cough. Social: Uses 1 can of snuff per week. Denies alcohol and recreational drug use. Lives with his at home, denies recent sick contacts or contact with Covid positive person. Medical history: As above Medications: Reviewed with patient, atorvastatin/famotidine/venlafaxine/vitamin D Allergies: Rash with antibiotic, tetracycline CODE STATUS: Full code Allergies Allergy/AdvReac Type Severity Reaction Status Date / Time tetracycline Allergy Unknown Rash Verified 02/08/20 19:33 [From Achromycin] Home Medications Home Medications Medication Instructions Recorded Confirmed Type atorvastatin 20 mg PO HS 07/09/18 02/08/20 History cholecalciferol (vitamin D3) 2,000 unit PO HS 07/09/18 02/08/20 History [Vitamin D3] venlafaxine [Effexor XR] 150 mg PO HS 07/09/18 02/08/20 History dicyclomine 10 mg PO AC 02/08/20 02/08/20 History esomeprazole magnesium 40 mg PO BID 02/08/20 02/08/20 History famotidine 20 mg PO BID 02/08/20 02/08/20 History nitroglycerin 0.4 mg SUBLINGUAL DIRECTED PRN 02/08/20 02/08/20 History Past Med/Surg History Medical History (Updated 02/10/20 @ 00:02 by Dwight Torres) Anxiety Barretts esophagus Cardiac murmur ONLY AN Degenerative disc disease Depression GERD (gastroesophageal reflux disease) Hepatitis C Hyperlipidemia Nausea & vomiting Sleep apnea CPAP Surgical History History of adenoidectomy History of anesthesia reaction PROPROFOL WITH DENTAL PROCEDURE-LIGHTHEADED AND DIZZINESS 24 HOURS AFTER PROCEDURE. History of colonoscopy History of esophagogastroduodenoscopy (EGD) History of laminectomy LUMBAR X 3 History of tonsillectomy History of tooth extraction Hx of hand surgery RT HAND 5TH FINGER FX REPAIR Family History Mother Family hx of colon cancer Social History Smoking Status: Never smoker Tobacco Type: Smokeless Tobacco (Dip or Chew) Second Hand Exposure: No; Do You Dip or Chew Tobacco: Yes; Tobacco Cessation Education Requested by Patient: No Hx Alcohol Use: No Hx Substance Use: No Preferred Language: Latvian Communication Ability: Effective Ambulance Driver Paramedic Required: No Beliefs That Will Affect Care: None Current Living Situation: Spouse Other Information That Helps Us Care for You: No Feels Safe at Home: Yes Safety Concerns: Feels Safe At This Time Assistive Devices: Glasses Review of Systems Review of Systems: All systems reviewed & are unremarkable except as noted in HPI & below Physical Exam Physical Exam: General: Alert and oriented x3. Appears nauseous, vomits during exam. Thought process linear. HEENT: Atraumatic, normocephalic. Pulls equal and reactive to light and accommodation. Mucous membranes tacky. Pulm: CTAB A&P. -wheezes, -rales, -rhonchi. Symmetrical chest rise. No increase work of breathing. No respiratory distress. Cardiac: RRR, -mrg. Radial pulses intact and symmetrical. Abdominal: Epigastric tenderness. Patient very nauseous, retching and vomiting nonbloody yellow emesis during exam. Results & Data Results & Data ([facility]) Vital Signs (Past 12 Hours) Vital Signs Temp Pulse Resp BP Pulse Ox 02/08/20 23:39 57 L 16 156/87 H 94 02/08/20 23:37 67 02/08/20 21:30 54 L 13 183/87 H 02/08/20 21:11 58 L 14 160/81 H 02/08/20 20:00 65 165/101 H 02/08/20 19:00 72 16 172/93 H 02/08/20 18:43 61 21 184/89 H 100 02/08/20 18:40 36.6 C 67 20 184/89 H 100 Supervising Physician Co-Signing Physician Notes Attending addendum: I have physically seen this patient, have supervised the medical residents activities, and agree with the H&P unless as otherwise noted. Assessment and Plan: Intractable nausea, vomiting abdominal pain- CT suggesting nonspecific esophagitis, obstructing neoplasm, stricture or achalasia. N.p.o. Zofran 4 mg IV every 6 hours as needed famotidine 20 mg IV every 12 hours Phenergan 25 mg IV every 6 hours as needed NSS + KCl 20 mEq 120 mils per hour Consult gastroenterology Remaining orders and notations as noted Resident Activity Tracking Resident Involvement: Resident Care Provided Care Provided: Adult Hospital Medicine (1) Nausea & vomiting Vomiting Intractability: non-intractable Vomiting type: unspecified Qualified Code(s): R11.2 - Nausea with vomiting, unspecified
[2020-02-09] MEDS ORDERED: diphenhydrAMINE 50 MG/ML VIAL IV PRN (02:02)
[2020-02-09] MEDS ORDERED: PROMETHAZINE HCL 6.25 MG in SODIUM CHLORIDE 0.9% 50 ML IV PRN (02:02)
[2020-02-09] MEDS ORDERED: ONDANSETRON INJ 2 MG/ML 2 ML VIAL IV PRN (02:02)
[2020-02-09] MEDS: PANTOprazole 40 MG in SYRINGE 0 ML IV SCH ×2 (02:47→10:00)
[2020-02-09] MEDS: FAMOTIDINE 20 MG in SYRINGE 3 ML IV SCH ×2 (02:51→10:00)
[2020-02-09] MEDS: POTASSIUM CHLORIDE 40 MEQ in SODIUM CHLORIDE 0.9% 1000ML 1,000 ML IV SCH ×2 (02:51→10:09)
--- NOTE | 2020-02-09 08:17 | CT Scan Report ---
CT SCAN OF THE ABDOMEN AND PELVIS WITH IV CONTRAST CLINICAL HISTORY: Vomiting. COMPARISON STUDY: Abdominal MRI dated 06/24/2018. TECHNIQUE: Following the IV administration of 93 cc of Optiray 320, CT scan of the abdomen and pelvi s is performed from the lung bases to the proximal femora. Images are reviewed in the axial, sagittal , and coronal planes. IV contrast was administered without complication. A dose lowering technique wa s utilized adhering to the principles of ALARA. The patient vomiting during the initial scan and a re peat scan was performed. CT DOSE: 1588.00 mGy.cm FINDINGS: Lung bases: The heart is normal in size and without pericardial effusion. The lung bases are clear. T here is marked circumferential wall thickening of the distal esophagus. A small hiatal hernia is obse rved. Liver: The contrast-enhanced liver is normal in size, contour, and attenuation. There is no intrahepa tic biliary ductal dilatation. The hepatic veins and portal veins are patent. Gallbladder: Surgically absent noting clips in the gallbladder fossa. Spleen: Normal in size and attenuation. Pancreas: Unremarkable. Adrenal glands: Unremarkable. Kidneys: The contrast enhanced kidneys are normal in size and without hydronephrosis. The kidneys enh ance and excrete symmetrically. Abdominal vasculature: The abdominal aorta is normal in course and caliber. Bowel: There is no bowel obstruction. Fecal retention is noted throughout the colon. There is mild co lonic diverticulosis without CT evidence of acute diverticulitis. The appendix is well-visualized an d normal. Peritoneum: There is no intraperitoneal free air or abdominal ascites. There is a small fat-containin g umbilical hernia. Lymphadenopathy: None. Pelvic viscera: The prostate gland is mildly enlarged and heterogeneous noting median lobe hypertroph y. The bladder wall appears mildly thickened and trabeculated suggesting chronic outlet obstruction. There are bilateral fat-containing inguinal hernias. Skeletal structures: There is moderate lumbosacral spondylosis. A large posterior disc osteophyte com plex is noted at L5-S1. No lytic or blastic lesions are seen. IMPRESSION: 1. There is marked circumferential wall thickening of the distal esophagus. Correlate clinically for evidence of esophagitis. If there is clinical concern for underlying mass lesion follow-up with endos copy should be considered. 2. Small hiatal hernia. 3. Mild colonic diverticulosis without CT evidence of acute diverticulitis. 4. Additional findings as above. ACT 112: Negative or not required by law. Electronically signed by: Amando Mccarty M.D. 02/09/2020 8:16 AM
[2020-02-09 08:32] LABS: Basophils # (auto) 0.05 K/uL (0-0.2); Basophils % (auto) 0.4 %; Eosinophils # (auto) 0.13 K/uL (0-0.5); Eosinophils % (auto) 0.9 %; Hematocrit (blood only) 42.5 % (42-52); Hemoglobin 14.3 g/dL (14.0-18.0); Immature Granulocytes # (auto) 0.02 K/uL (0.00-0.02); Immature Granulocytes % (auto) 0.1 %; Lymphocytes # (auto) 1.54 K/uL (1.2-3.4); Mean Corpuscular Hemoglobin 31.1 pg (25-34); Mean Corpuscular Hgb Conc 33.6 g/dL (32-36); Mean Corpuscular Volume 92.4 fL (80-100); Monocytes % (auto) 7.2 %; Neutrophils # (auto) 11.22 K/uL (1.4-6.5); Neutrophils % (auto) 80.4 %; Platelet Count 304 K/uL (130-400); RDW Coefficient of Variation 13.6 % (11.5-14.5); RDW Standard Deviation 45.9 fL (36.4-46.3); White Blood Count 13.96 K/uL (4.8-10.8)
[2020-02-09 08:51] LABS: BUN Creatinine Ratio 13.5 (10-20); Calcium 8.8 mg/dl (8.5-10.1); Creatinine Clr Calc Pharmacy 106.1 ml/min; Est GFR (African American) 113.1; Est GFR (Non-African American) 97.6
[2020-02-09] MEDS ORDERED: HEPARIN SOD 5,000 UNIT/0.5 ML VIAL SQ SCH (09:00)
--- NOTE | 2020-02-09 10:33 | Gastrointestinal Consultation ---
Date of Consultation February 09, 2020 Assessment & Plan (1) Nausea & vomiting: (2) Achalasia: (3) GERD (gastroesophageal reflux disease): (4) Barretts esophagus: (5) Gastroparesis: Pt is a 59 yo male w hx of GERD, hiatal hernia, Carney's esophagus, gastroparesis and recently dx of suspected achalasia s/p esophageal dilation via EGD 2 months ago. He was admitted w intractable n/v, epigastric abd pain after trying to ingest soup. He had little trouble swallow liquids in the past and also report that Dicyclomine works better than Nitroglycerin to help w his swallowing. DDx: gastroparesis flare, worsening esophageal dysmotility, less likely gastroenteritis. - Protonix IV BID - DC Pepcid IV - CL diet - Zofran & Phernegran prn nausea, vomiting - Hold Dicyclomine - DC home today to f/u with esophageal manometry study at [facility] scheduled for tomorrow. Pt instructed to stay on CL diet only today and NPO since 10p. Hold Dicyclomine at home as to not interfere w manometry study History of Present Illness Reason for Consultation: N/V Requesting Physician: Dr. Abelardo Chappell Attending Physician: Dr. aMia Aguirre History of Present Illness Pt is a 59 y/o male admitted yesterday for intractable n/v symptoms. He has hx of GERD, Carney's esophagus, hiatal hernia, gastroparesis and recently dx w suspected achalasia s/p esophageal dilation to 18mm via by Dr. Hobbs 2 month ago. He's been able to drink soups and is scheduled for esophageal man ometry study at [facility] tomorrow. I saw pt last in GI clinic earlier this month. He told me that he's been self medication with Nitroglycerin SL tabs when he feels he's unable to swallow foods and having pressure discomfort on mid chest. I tried him on Dicyclomine 10mg qAC instead of the Nitro and he felt it's working better up till yesterday when he ate hot and sour soup. He started having n/v and epigastric pain after ingesting this. He denies other symptoms such as fever, chills, CP, SOB, bowel habit changes. CXR, Head CT unremarkable CT abd/pelvis w contrast: 1. There is marked circumferential wall thickening of the distal esophagus. Correlate clinically for evidence of esophagitis. If there is clinical concern for underlying mass lesion follow-up with endoscopy should be considered. 2. Small hiatal hernia. 3. Mild colonic diverticulosis without CT evidence of acute diverticulitis. Allergies Allergy/AdvReac Type Severity Reaction Status Date / Time tetracycline Allergy Unknown Rash Verified 02/08/20 19:33 [From Achromycin] Home Medications Home Medications Medication Instructions Recorded Confirmed Type atorvastatin 20 mg PO HS 07/09/18 02/08/20 History cholecalciferol (vitamin D3) 2,000 unit PO HS 07/09/18 02/08/20 History [Vitamin D3] venlafaxine [Effexor XR] 150 mg PO HS 07/09/18 02/08/20 History dicyclomine 10 mg PO AC 02/08/20 02/08/20 History esomeprazole magnesium 40 mg PO BID 02/08/20 02/08/20 History famotidine 20 mg PO BID 02/08/20 02/08/20 History nitroglycerin 0.4 mg SUBLINGUAL DIRECTED PRN 02/08/20 02/08/20 History Patient History Medical History (Updated 02/09/20 @ 10:30 by BRIAN Judge) Anxiety Barretts esophagus Cardiac murmur ONLY AN Degenerative disc disease Depression GERD (gastroesophageal reflux disease) Hepatitis C Hyperlipidemia Sleep apnea CPAP Surgical History History of adenoidectomy History of anesthesia reaction PROPROFOL WITH DENTAL PROCEDURE-LIGHTHEADED AND DIZZINESS 24 HOURS AFTER PROCEDURE. History of colonoscopy History of esophagogastroduodenoscopy (EGD) History of laminectomy LUMBAR X 3 History of tonsillectomy History of tooth extraction Hx of hand surgery RT HAND 5TH FINGER FX REPAIR Family History Mother Family hx of colon cancer Social History Smoking Status: Never smoker Tobacco Type: Smokeless Tobacco (Dip or Chew) Second Hand Exposure: No; Do You Dip or Chew Tobacco: Yes; Tobacco Cessation Education Requested by Patient: No Hx Alcohol Use: No Hx Substance Use: No Preferred Language: Citizen Of [place] Communication Ability: Effective Inspector Agricultural Commodities Required: No Beliefs That Will Affect Care: None Current Living Situation: Spouse Other Information That Helps Us Care for You: No Feels Safe at Home: Yes Safety Concerns: Feels Safe At This Time Assistive Devices: Glasses Review of Systems Review of Systems: All systems reviewed & are unremarkable except as noted in HPI & below Physical Exam Constitutional: WD/WN, vitals as above well groomed, cooperative and comfortable Eyes: PERRL, conjunctivae normal, anicteric sclerae ENMT: external ear and nose normal, oropharynx normal Respiratory: normal respiratory effort, lungs clear to auscultation Cardiovascular: RRR, no murmur, no edema Gastrointestinal (Abdomen): normal bowel sounds, soft, nontender, no hepatosplenomegaly Skin: no rashes, warm and dry Psychiatric: A+Ox3, euthymic affect Lymphatic: no lymphedema Results & Data ([facility]) Vital Signs (Past 12 Hours) Vital Signs Temp Pulse Pulse Pulse Resp BP BP 02/09/20 06:58 36.9 C 65 18 126/67 02/09/20 02:06 36.5 C 62 18 147/78 H 02/09/20 01:31 36.8 C 89 18 148/77 H 02/09/20 00:30 100 H 23 178/98 H 02/09/20 00:00 61 12 173/88 H 02/08/20 23:39 57 L 16 156/87 H 02/08/20 23:37 67 Pulse Ox 02/09/20 06:58 95 02/09/20 02:06 97 02/09/20 01:31 96 02/09/20 00:30 95 02/09/20 00:00 95 02/08/20 23:39 94 02/08/20 23:37 (1) Nausea & vomiting Vomiting Intractability: non-intractable Vomiting type: unspecified Qualified Code(s): R11.2 - Nausea with vomiting, unspecified
[2020-02-09] MEDS ORDERED: DICYCLOMINE HCL 10 MG CAP PO SCH (11:30)
--- NOTE | 2020-02-09 15:58 | Electrocardiogram Report ---
Test Reason : Blood Pressure : / mmHG Vent. Rate : 066 BPM Atrial Rate : 066 BPM P-R Int : 164 ms QRS Dur : 090 ms QT Int : 412 ms P-R-T Axes : 057 058 022 degrees QTc Int : 431 ms Poor data quality, interpretation may be adversely affected Normal sinus rhythm Low voltage QRS Nonspecific ST abnormality Abnormal ECG When compared with ECG of 10-JUL-2018 13:44, No significant change was found Confirmed by Fredis Perez ([id number]) on 02/09/2020 3:58:13 PM Referred By: REFERRED SELF Confirmed By:Fredis Perez
--- NOTE | 2020-02-09 19:59 | Discharge Summary ---
Date of Service February 09, 2020 Admission HPI Per Admitting Provider Nirmal Brar is a 59-year-old male with a past medical history of achalasia, hyperlipidemia, and reflux who presents with 1 day of worsened epigastric pain and vomiting. Salazar reports that his stomach has been bothering him since October. He saw Dr. Hobbs 1 month ago and was found to have achalasia which was dilated on EGD. He was initially well, but developed epigastric discomfort in the last few weeks which has been coming and going. In the last 6 hours he notes his stomach has become "sore as hell "and he has been vomiting for several hours with persistent nausea. He denies blood, feels like his emesis is becoming bilious. He had similar symptoms over a year ago before having his gallbladder out, but notes that this feels different. He denies fevers, chills, diarrhea. He has had some sweats with vomiting. He has felt constipated. He has not had any shortness of breath. He endorses epigastrium and lower central chest pain, no upper or left-sided chest pain. He has had weight loss. He has not had a cough. Social: Uses 1 can of snuff per week. Denies alcohol and recreational drug use. Lives with his at home, denies recent sick contacts or contact with Covid positive person. Medical history: As above Medications: Reviewed with patient, atorvastatin/famotidine/venlafaxine/vitamin D Allergies: Rash with antibiotic, tetracycline CODE STATUS: Full code Principal Diagnosis achalasia, gastroparesis Discharge Exam gen aaox3 pleasant nad heent nc at mmm breathing unlabored no accessory muscles good effort skin no rashes no pallor or icterus neuro no focal deficits Discharge Data Allergies Allergy/AdvReac Type Severity Reaction Status Date / Time tetracycline Allergy Unknown Rash Verified 02/08/20 19:33 [From Achromycin] Consultations 02/08/20 22:03 ED Decision to Admit Stat 02/09/20 09:04 Consult Gastroenterology Routine Ordered Studies 02/08/20 20:12 CT head/brain wo con Stat 02/08/20 23:08 CT abd pelvis IV con only Urgent Hospital Course (1) Gastroparesis: (2) Achalasia: doing better stable for home so that he can continue w ongoing outpt w/u clear liquids for now hold dicyclomine for now monometry test tomorrow - then as per GI thereafter Total Time Total Time Spent Total Time Spent (In Minutes): <30 Discharge Plan Discharge Items Patient Disposition: Home - Self-Care Reason For Visit: INTRACTIBLE VOMITING Discharge Diagnosis: vomiting resolved Condition on Discharge: Good Activity: Resume your previous activity Non-emergency contact: Primary Care Provider and Reimbursement Director Call non-emergency contact if: you have any medication questions and your symptoms worsen Follow-up/Referrals: Nora Arias PA-C [Primary Care Provider] - 02/15/20 11:00 am (DR TANG) Diet: Clear liquid Addtl Attending Provider Instructions: for today - clear liquid diet only. after your study they can direct you on what will be safe to advance your diet to. don't take the dicyclomine until after the test is done as it can interfere with the results Pending Studies at Discharge: No Stand-Alone Forms: My [employer], Smoking Cessation Medications and DC Order Prescriptions: Continued atorvastatin 20 mg Tablet 20 mg PO HS RF: 0 venlafaxine [Effexor XR] 150 mg Capsule,Extended Release 24hr 150 mg PO HS RF: 0 cholecalciferol (vitamin D3) [Vitamin D3] 2,000 unit Tablet 2,000 unit PO HS RF: 0 famotidine 20 mg tablet 20 mg PO BID RF: 0 esomeprazole magnesium 40 mg capsule,delayed release(DR/EC) 40 mg PO BID RF: 0 dicyclomine 10 mg capsule 10 mg PO AC RF: 0 nitroglycerin 0.4 mg tablet, sublingual 0.4 mg sublingual DIRECTED PRN (Reason: Chest Pain) RF: 0 Discharge Orders: Discharge Order (Routine); Ordered 02/09/20 Ordered By: Abelardo Miller/Other Patient Handouts: Anatomy of the Digestive System Admission Data Admit Date/Time: 02/09/20 00:55 Attending Provider: Abelardo Chappell Admit Provider: Ronald Lane Primary Care Provider: Nora Arias Other Providers: Lamberto Chin ; Maia Aguirre Other Interventions: Discharge Summary Assessment (RN) Last Done: 02/09/20 14:42 Coding Level of Care Code 96911 OBS Care - Discharge Diagnoses Gastroparesis K31.84 Achalasia K22.0
--- NOTE | 2020-02-10 06:10 | Billing Data ---
Date of Service February 10, 2020 Coding Level of Care Code 07565 OBS Care - Level 3
[2020-02-10 15:11] LABS: Anti Nuclear Antibody Screen NEGATIVE (NEGATIVE); Anti-Centromere Ab <1.0 NEG AI (<1.0 NEG); RNP Antibody <1.0 NEG AI (<1.0 NEG); Scleroderma Anti Scl-70 Ab <1.0 NEG AI (<1.0 NEG)
[2020-02-11 10:41] LABS: Albumin 3.7 g/dL (3.8-4.8); Alpha 1 Globulin 0.3 g/dL (0.2-0.3); Alpha 2 Globulin 0.8 g/dL (0.5-0.9); Beta-1-Globulin 0.4 g/dL (0.4-0.6); Beta-2-Globulin 0.4 g/dL (0.2-0.5); Gamma Globulin 1.1 g/dL (0.8-1.7); Monoclonal Protein Band 1 DNR g/dL (NONE DETECTED); Monoclonal Protein Band 2 DNR g/dL (NONE DETECTED); Monoclonal Protein Band 3 DNR g/dL (NONE DETECTED); Total Protein 6.7 g/dL (6.1-8.1)
== END 2020-02-09 16:12 | disposition home or self-care (01) ==
LOC: 3N 18:35 → ED 18:35 → SUATTDRO 02-09 00:55 → 3N 02-09 01:31